=== PATIENT | female | born 1985 | race African-American/Black ===

== ENCOUNTER 2019-05-07 10:02 | Observation (INO) ==
--- NOTE | 2019-05-07 10:03 | PROVIDER DOCUMENTATION ---
HPI-General Adult - General Stated Complaint: LABS / Time Seen by Provider: 05/07/19 10:03 Source: patient Allergies/Adverse Reactions: Patient Allergies Allergy/AdvReac Type Severity Reaction Status Date / Time No Known Allergies Allergy Verified 05/04/19 20:02 Home Medications: Home Medication List Medication Instructions Recorded Confirmed Last Taken Type NK [No Home Medications] 08/28/18 08/28/18 Unknown History - History of Present Illness -Gen Adult Nature of Presenting Problems: Pt. is 33 yof that presents with c/o having a positive test with her tubes tied. Pt. states she is having some vaginal beeding. Pt. reports she was here on Tuesday and was told to return today for repeat blood work. Pt. denies a ny other symptoms. Location of Pain/Injury: reports: none. denies: head, face, mouth, neck, chest, upper extremity, hand(s), abdomen, back, pelvis, genitalia, lower extremity, feet, upper body, lower body, generalized, other Pain Radiation: reports: no radiation. denies: arm(s), back, buttocks, chest, epigastric, feet, groin, jaw, flank (L), legs (lower), LLQ, LUQ, neck, periumbilical, flank (R), RLQ, RUQ, shoulder(s), scapula, scrotal, sternal notch, suprapubic, legs (upper), urethral, vaginal, other Quality of Pain: reports: none. denies: cramping, sharp, tightness Severity: reports: mild. denies: moderate, severe Onset/Duration: reports: unsure, gradual Timing: reports: still present. denies: improving, constant, getting worse Context/Activities at Onset: reports: none. denies: light activity, moderate a ctivity, vigorous activity, recent emotional stress, recent physical stress, recent trauma history, possible bad food, cold exposure, eating, out of country travel, rest, sleep, sexual activity, other Modifying Factors: improves with: nothing Associated Symptoms: reports: other (Vaginal bleeding). denies: denies symptoms, anxiety, arm pain, back/neck pain, chest pain, constipation, cough, diaphoresis, diarrhea, dizziness, EENT symptoms, fatigue, fever/chills, genitourinary problems, headaches, heartburn, joint pain, loss of appetite, malaise, muscle aches, sinus congestion/drainage, nausea, rash, seizure, shortness of breath, sensory/motor loss, pain with inspiration, swelling/mass in abdomen, syncope, vomiting, weakness, trouble walking Similar Symptoms Previously?: Yes Recently seen or treated by another doctor?: Yes Review of Systems - Adult - REVIEW OF SYSTEMS - ADULT Constitutional: reports: no symptoms reported Eyes: reports: no symptoms reported Ears, Nose, Mouth & Throat: reports: no symptoms reported Cardiovascular: reports: no symptoms reported Respiratory: reports: no symptoms reported Gastrointestinal: reports: no symptoms reported Genitourinary: reports: see HPI, other (vaginal bleeding) Musculoskeletal: reports: no symptoms reported Integumentary: reports: no symptoms reported Neurological: reports: no symptoms reported Psychiatric: reports: no symptoms reported Past History - Adult - PAST MEDICAL HISTORY-ADULT Review of Records: reports: Old Records Reviewed, Nursing Assessment Review, Med ications Reviewed, Social history reviewed & non-contributory. Major Childhood Illnesses: reports: denies history Cardiovascular: reports: denies history Respiratory: reports: denies history Gastrointestinal: reports: denies history Obstetrical/Gynecological: reports: - spont/elective (spontaneous), other (BTL) Genitourinary: reports: denies history Musculoskeletal: reports: denies history Neurological: reports: denies history Psychiatric: reports: denies history Endocrine/Immune: reports: denies history Other Conditions: reports: denies history - PRIOR SURGERIES/PROCEDURES Surgical/Procedure History: reports: BTL - IMMUNIZATION STATUS Childhood Immunizations: See Nurse Assessment Flu Vaccine: See Nurse Assessment - FAMILY HISTORY Family History: reviewed, not pertinent - SOCIAL HISTORY Smoking: denies Physical Exam-General - PHYSICAL EXAM-ADULT Initial Vital Signs Reviewed: Yes - CONSTITUTIONAL General Appearance: alert, no apparent distress, thin. negative: anxious, slow to respond, obtunded, combative - EYES Eyes: PERRL/EOMI, pink conjunctivae - HEAD, EARS, NOSE, MOUTH & THROAT HENMT: normocephalic/atraumatic, moist mucous membranes. negative: angioedema, frontal tenderness, maxillary tenderness - NECK Neck: non-tender, full range of motion, supple, normal inspection - RESPIRATORY Respiratory: lungs clear, normal breath sounds - CARDIOVASCULAR Cardiovascular: normal peripheral pulses, regular rate, rhythm, no edema - GASTROINTESTINAL (ABDOMEN) Abdominal Exam: normal bowel sounds, non tender, soft - LYMPHATIC Lymphatic: no adenopathy. negative: axilla node tender, cervical node tenderness - MUSCULOSKELETAL Back Exam: normal inspection, no CVA tenderness, no vertebral tenderness Extremity: normal range of motion, non-tender, normal gait, normal inspection Peripheral Pulses: radial (R): 2+, radial (L): 2+ - SKIN Integumentary: normal color, normal turgor, warm/dry. negative: cyanosis, diaphoresis, ecchymosis, jaundice, rash - NEUROLOGIC Neurologic: grossly normal, no motor/sensory deficits - PSYCHIATRIC Psych/Mental Status: normal mood/affect, normal thought content, normal thought process, oriented x 3. negative: anxious, paranoid, tearful Progress - PLAN OF CARE/RESULTS Progress/Plan/Lab Results: Laboratory Tests 05/07/19 05/07/19 10:40 11:00 Ser , Semi-Qnt 1673.0 Urine Source CLEAN CATCH Urine Color YELLOW Urine Clarity CLEAR Urine pH 6.5 Ur Specific [place] 1.015 Urine Protein TRACE A Urine Ketones NEGATIVE Urine Blood 1+ A Urine Nitrite NEGATIVE Urine Bilirubin NEGATIVE Urine Urobilinogen NORMAL Urine Microscopic RBC 10-20 A Urine WBC TRACE A Urine Microscopic WBC <10 Ur Epithelial Cells <10 Urine Bacteria 1+ Urine Glucose NEGATIVE Discussed patient results with Dr. Springer and he states to repeat the US. Laboratory Tests 05/07/19 05/07/19 10:40 11:00 Ser , Semi-Qnt 1673.0 Urine Source CLEAN CATCH Urine Color YELLOW Urine Clarity CLEAR Urine pH 6.5 Ur Specific [place] 1.015 Urine Protein TRACE A Urine Ketones NEGATIVE Urine Blood 1+ A Urine Nitrite NEGATIVE Urine Bilirubin NEGATIVE Urine Urobilinogen NORMAL Urine Microscopic RBC 10-20 A Urine WBC TRACE A Urine Microscopic WBC <10 Ur Epithelial Cells <10 Urine Bacteria 1+ Urine Glucose NEGATIVE Dr. Sorto called back at 1332 and states to send the patient to [facility]. - ULTRASOUND (By Radiology) 1 US Study: Transvaginal ([facility] [address] , [address], [place] [address] Department of Imaging Patient: STEPHEN JARA Date: 05/07/19#: [id number] : 1985ADM Status: REG ERAcct#: [id number] Age/Sex: 33/FRoom/Bed: Loc: P.ED Ordering Physician: Dayna Manuel Family Physician: Jennie Brunson MD Reason for Procedure: bleeding with __ _ Signed US OBS COMPLETE < 14 WKS - 05/07/2019 INDICATION: bleeding with TECHNIQUE: Endovaginal COMPARISON: 05/04/2019 FINDINGS: There is a persistent left ovarian cyst which is minimally complex. This measures about 2. One centimeters. This demonstrates increasing peripheral vascularity, to the point of a ring of fire. The patient is also tender in this location. There is trace pelvic free fluid. No intrauterine visible. The uterus and right ovary are normal. IMPRESSION: Probable left ovarian ectopic . This report was discussed with Des Manuel on 05/07/2019 at 12:22 PM and was readback. Electronically signed by Devyn York 05/07/2019 12:24 PM 05/07/19 1224 Interpreting Physician: Devyn York MD Dictated Date/Time: 05/07/19 1219 cc: Dayna Manuel; Jennie Brunson MD) US Results: See note - CONSULTS/PCP/HOSPITALIST Notification #1 *Consult/PCP/Hospitalist*: Dr. Sorto Time Discussed: 12:34 Reason/Comments: Consult Consult Disposition: other (Will review the reports and labs and call back.) #2 Consult: Dr. Sorto Time Discussed: 12:49 Reason/Comments: Consult Consult Disposition: F/U in office (She reports the patient can be managed by Methotrexate 50 times her BSA IM with today being day one. This is as long as the CBC and Chem are ok. The patient must follow up on with Dr. Bazzi at [facility]. She will recieve a second dose on which will be day four.) #3 Consult: Dr. Sorto Time Discussed: 12:53 Reason/Comments: Consult with Dr. Springer Consult Disposition: Will see in ED (Dr. Sorto will come see the patient.) Departure - Departure Date of Disposition Decision: 05/07/19 Time of Disposition Decision: 13:32 DIAGNOSIS: Ectopic of ovary Qualifiers: Intrauterine status: unspecified Laterality: left Qualified Code(s): O00.202 - Left ovarian without intrauterine Disposition: ADMITTED INPATIENT 09 Certified Medical Emergency: Emergent Condition: Stable Additional Freetext Instructions: ED Follow Up Instructions: You have been treated by a care provider in the Emergency Department. These instructions are being provided to you so you can have an understanding of how to care for yourself upon discharge. Upon discharge from the Emergency Department, you are responsible for making arrangements for follow-up care by a physician of your choice. Take all prescribed medications as directed. Return to the Emergency Department immediately for any new or worsening symptoms. You may call the Physician Referral phone number at [phone] to obtain a list of Physicians who are taking new patients. Referrals and Follow-Ups: Jennie Brunson MD [Primary Care Provider] - Olga Lidia Bazzi III, MD [ACTIVE STAFF PHYSICIAN] - Discharge Education: Ectopic - Critical Care Note This patient required my direct & personal management of CC.: No Attestation - Physician/ ARSALAN Attestation Patient care was provided by Advanced Practice Provider:: Yes Advanced Practice Provider:: Dayna Manuel Advanced Practice Provider documentation review:: The Mid-level provider documentation, treatment plan and medical decision making was reviewed by the physician who agrees with all treatment and medical decision making by the P. The physician spent face to face time with patient:: Yes Advanced Practice Provider documentation review:: Supervising physician onsite and consulted in the evaluation and care of this patient. The physician did have a face to face encounter with the patient.
[2019-05-07 11:17] LABS: BILIRUBIN URINE NEGATIVE (NEGATIVE); BLOOD URINE 1+ (NEGATIVE); CLARITY CLEAR (CLEAR); COLOR YELLOW; GLUCOSE URINE NEGATIVE (NEGATIVE); KETONE URINE NEGATIVE (NEGATIVE); LEUKOCYTES URINE TRACE (NEGATIVE); NITRITE URINE NEGATIVE (NEGATIVE); PH URINE 6.5; PROTEIN URINE TRACE mg/dL (NEGATIVE); SP GRAVITY URINE 1.015; UROBILINOGEN URINE NORMAL
[2019-05-07 11:18] LABS: URINE BACTERIA 1+ /HFP; URINE EPITHELIAL CELLS <10 /HPF (<10); URINE SOURCE CLEAN CATCH; URINE WBC <10 /HPF (<10)
--- NOTE | 2019-05-07 12:26 | Diag Imaging Result Doc PS360 ---
US OBS COMPLETE < 14 WKS - 05/07/2019 INDICATION: bleeding with TECHNIQUE: Endovaginal COMPARISON: 05/04/2019 FINDINGS: There is a persistent left ovarian cyst which is minimally complex. This measures about 2. One centimeters. This demonstrates increasing peripheral vascularity, to the point of a ring of fire. The patient is also tender in this location. There is trace pelvic free fluid. No intrauterine visible. The uterus and right ovary are normal. IMPRESSION: Probable left ovarian ectopic . This report was discussed with Des Manuel on 05/07/2019 at 12:22 PM and was readback. Electronically signed by Devyn York 05/07/2019 12:24 PM
[2019-05-07] MEDS ORDERED: MORPHINE IV ONE (12:40)
[2019-05-07] MEDS ORDERED: ZOFRAN IV ONE (12:40)
[2019-05-07] MEDS ORDERED: NS 1,000 ML IV ONE (12:40)
[2019-05-07 14:12] LABS: BASO# 0.02 X1000 (0.0-0.2); BASO% 0.3 % (0.0-0.8); EOS# 0.09 X1000 (0.0-0.7); EOS% 1.6 % (0.0-10.0); HEMATOCRIT 37.6 % (37.0-47.0); HEMOGLOBIN 12.4 g/dL (12.0-16.0); IMM GRAN# 0.01 X1000 (0.0-0.04); IMM GRAN% 0.2 % (0.0-0.5); LYMPH# 3.06 X1000 (1.2-3.4); LYMPH% 53.2 % (20.5-51.1); MCH 26.9 PG (27-31); MCV 81.6 FL (81-99); MONO# 0.36 X1000 (0.11-0.59); MONO% 6.3 % (1.7-9.3); MPV 10.6 FL (7.4-10.4); NEUT# 2.21 X1000 (1.4-6.5); NEUT% 38.4 % (42.2-75.2); PLT 266 X1000 (130-400); RBC 4.61 XMIL (4.2-5.4); RDW 13.2 % (11.5-14.5); WBC 5.75 X1000 (4.8-10.8)
[2019-05-07 14:37] LABS: AGAP 12; ALBUMIN 4.6 g/dL (3.5-5.0); ALKALINE PHOSPHATASE 68 U/L (32-104); BUN 6 mg/dL (8-22); CALCIUM 9.3 mg/dL (8.8-10.2); CHLORIDE 107 mmol/L (98-107); COSMO 275; CREATININE 0.8 mg/dL (0.5-0.9); ESTIMATED GFR > 60; GLUCOSE 99 mg/dL (70-104); GOT 12 U/L (10-30); GPT 7 U/L (10-36); POTASSIUM 4.4 mmol/L (3.5-5.1); SODIUM 139 mmol/L (136-145); TCO2 20 mmol/L (25-35); TOTAL PROTEIN 7.5 g/dL (6.3-8.3)
[2019-05-07] MEDS ORDERED: METHOTREXATE IM ONE (14:47)
[2019-05-07 16:09] VITALS: BP 125/69
== END 2019-05-07 16:09 | disposition home or self-care (01) ==
LOC: P.ED 10:02 → P.LD 10:02 → EDSTATUS 13:54
PROVIDERS: ADMIT Emergency Medicine; ATTEND Emergency Medicine
CPT/HCPCS: 76801; 80053; 81001; 84702; 85025; 87088; J2270; J2405; J7030; J9260